=== PATIENT | female | born 1955 | race Caucasian/White ===

== ENCOUNTER 2016-12-17 09:00 | Observation (INO) | payer OTHER ==
--- NOTE | ~2016-12-17 | HP ---
History And Physical [place] [id number] [facility] [place]. [address] NAME: LORRAINE BLANCO : 51 STATUS : ADM Ramirez PAT#: [id number] AGE: 61 ADM/REG DATE : 12/17/16 MR#: [id number] REPORT SERV DATE: 12/17/16 DICTATED BY: IFEOMA STEPHENSON DATE: 12/17/16 REPORT STATUS : Draft TRANSCRIBED BY: MODL DATE: 12/17/16 DATE OF ADMISSION: 12/17/2016 PRIMARY CARE PROVIDER: Sabrina. GOLD FRAME ASSEMBLER: Dr. Esdras Florentino. CHIEF COMPLAINT: Palpitations, flutters since last evening. HISTORY OF PRESENT ILLNESS: A very pleasant 61-year-old white female with no known history of CAD or previous atrial fibrillation events, reports that last night while watching TV, she fell asleep. She awoke and in getting up to go to bed, she had a significant headache and felt palpitations and flutters in her chest. Her daughter checked her vital signs. Her blood pressure was 140/90. Her heart rate ranged from 120 to 140 beats per minute. She reports feeling breathless and anxious, somewhat nauseous, dizzy with episodes of belching. She denies any diaphoresis. She does describe some chest tightness rated at a 6/10 at its most intense, now at 3/10. The patient denies any personal history of myocardial infarction, stroke, DVT, or pulmonary embolus. The patient denies any recent fever or chills. Describes palpitations since last evening, worse with activity. No syncopal episodes. Denies PND or orthopnea. [id number] score of 3 to 4 for gender, age, hypertension, and borderline diabetic. PAST MEDICAL HISTORY: 1. Hypertension. 2. Cholesterol per PCP. 3. Arthritis. 4. History of breast cancer, status post left mastectomy. 5. Borderline diabetic. 6. Murmur. PAST SURGICAL HISTORY: 1. Tonsillectomy. 2. Left mastectomy. 3. Umbilical hernia repair. SOCIAL HISTORY: She is , with three children. She sews out of her home. She does not have an exercise routine. She denies tobacco, alcohol, or illicits. FAMILY HISTORY: Mother and father with hypertension. Brother with stroke and heart attack, remains alive at the age of 65. REVIEW OF SYSTEMS: A 14-point review of systems performed, significant for HPI including snores per report with no formal sleep study. Home blood pressures of 135/70. Consumes one cup of coffee per day. History And Physical [place] [address] [place]. [address] NAME: LORRAINE BLANCO : 51 STATUS : ADM Ramirez PAT#: [id number] AGE: 61 ADM/REG DATE : 12/17/16 MR#: [id number] REPORT SERV DATE: 12/17/16 DICTATED BY: IFEOMA STEPHENSON DATE: 12/17/16 REPORT STATUS : Draft TRANSCRIBED BY: MODL DATE: 12/17/16 Otherwise, complete review of systems obtained and negative. ALLERGIES: OXYCODONE, DIZZINESS, CRAZY. HOME MEDICINES: Refresh drops; aspirin p.r.n.; vitamin D3 a 2000 units daily; lisinopril 10 mg daily; Antivert p.r.n.; Mobic 15 mg daily; Aleve p.r.n.; IBgard p.r.n.; and Bioflex. PHYSICAL EXAMINATION: VITAL SIGNS: Blood pressure 144/77, pulse 98, irregularly irregular, respirations 22, temperature 97.8, and O2 saturation 95% on room air. GENERAL: Cooperative, in no apparent distress. HEENT: Pupils 2 mm, sclera nonicteric. Nares patent. Moist mucous membranes. No xanthelasma. NECK: Trachea midline, no thyromegaly. No JVD. No bruits. LYMPH: No cervical lymphadenopathy. No supraclavicular lymphadenopathy. RESPIRATORY: Unlabored respirations. Breath sounds clear bilaterally to posterior auscultation. No wheezes or rhonchi. CARDIOVASCULAR: Irregularly irregular rate with a variable S1, S2. A 1/6 murmur, best audible right sternal border. Extremities without edema. Pulses 2+ bilaterally. ABDOMEN: Obese, soft, nontender, nondistended, normal bowel sounds auscultated throughout. No organomegaly. SKIN: Warm, dry extremities. No pallor, or cyanosis. PSYCHIATRIC: Appropriate affect. Alert, oriented x3. LABORATORY DATA: Troponin 0.03, second pending. Potassium 4.1, BUN 14, creatinine 0.72, glucose 129, magnesium 2.1. TSH 2.55. WBC 9.8, hemoglobin 14.6, hematocrit 42.7, and platelet count 261,000. EKG atrial fibrillation, but (previously regular with questionable SVT and sinus rhythm). MPI 2009 Papo stage 2, 5:01 minutes, 7 METS, no ischemia. ASSESSMENT AND PLAN: 1. New-onset atrial fibrillation. I will check a second troponin. N.p.o. after midnight for JENNY cardioversion on 12/18/2016, at 13:00. Begin beta kranthi and Eliquis, has been seen by Dr. Barros on rounds. We will initiate flecainide. [id number] score of 3 to 4. The patient will follow up with PCP and Dr. Florentino as appropriate. 2. Chest tightness. Consider outpatient MPI and echocardiogram to evaluate aortic stenosis after conversion to sinus rhythm. 3. Hypertension. Monitor blood pressure and continue home medications. 4. Borderline diabetic. Level 1 sliding scale correction. 5. Snores per report. Recommend outpatient sleep study through PCP. 6. I am going to add Eliquis 5 mg b.i.d. at discharge. CYNDY/JAMEE History And Physical [address] [address] NAME: LORRAINE BLANCO : 51 STATUS : ADM Ramirez PAT#: [id number] AGE: 61 ADM/REG DATE : 12/17/16 MR#: [id number] REPORT SERV DATE: 12/17/16 DICTATED BY: IFEOMA [place] DATE: 12/17/16 REPORT STATUS : Draft TRANSCRIBED BY: MODL DATE: 12/17/16 Ifeoma Stephenson, MSN, DIRECTOR OF CLINICAL SERVICES-BC / [id number] CC: Ifeoma Stephenson, JOSE MANUEL, DIRECTOR OF CLINICAL SERVICES-BC Esdras Florentino M.D., Ph.D, F.A.C.C.
--- NOTE | ~2016-12-17 | OP ---
Record Of [facility] [address] [place]. [address] NAME: LORRAINE BLANCO : 51 STATUS : DIS Ramirez PAT#: [id number] AGE: 61 ADM/REG DATE : 12/17/16 MR#: [id number] REPORT SERV DATE: 12/19/16 DICTATED BY: ESDRAS DELONG DATE: 12/18/16 REPORT STATUS : Draft TRANSCRIBED BY: MODL DATE: 12/18/16 DATE OF PROCEDURE: 12/18/2016 This is a transesophageal echocardiogram and cardioversion report. REQUESTED BY: Riley Barros M.D. INDICATION: Atrial fibrillation. PROCEDURE DESCRIPTION: After informed consent, the patient was sedated with propofol by the Anesthesia Department. The transesophageal probe was placed on the first attempt. After removal of the transesophageal probe, a single defibrillation was delivered. There were no immediate complications. TRANSESOPHAGEAL ECHOCARDIOGRAM: 2-D INTERPRETATION: 1. The aortic valve is trileaflet and opens adequately. 2. The ascending aorta is normal in size. 3. There is no evidence of left atrial appendage thrombus. 4. The left ventricular size and systolic function appears normal. 5. There was no evidence of pericardial effusion. 6. The mitral valve is structurally normal. 7. The left atrial size is mildly enlarged. 8. Right-sided chambers are normal in size. 9. The tricuspid valve is structurally normal. DOPPLER: Pulse wave Doppler in the left atrial appendage is less than 40 cm/second. COLOR FLOW: 1. There was [id number] mitral regurgitation. 2. There is trace to mild aortic and tricuspid regurgitation. CARDIOVERSION: A single synchronized 200 joule biphasic defibrillation was delivered. Atrial fibrillation converted to normal sinus rhythm. IMPRESSION: 1. No evidence of left atrial appendage thrombus. 2. [id number] mitral regurgitation with mild left atrial enlargement. 3. Successful cardioversion from atrial fibrillation to normal sinus rhythm. MU/JAMEE Esdras Record Of [place] [address] [place]. [address] NAME: LORRAINE BLANCO : 51 STATUS : DIS Ramirez PAT#: [id number] AGE: 61 ADM/REG DATE : 12/17/16 MR#: [id number] REPORT SERV DATE: 12/19/16 DICTATED BY: ESDRAS DELONG DATE: 12/18/16 REPORT STATUS : Draft TRANSCRIBED BY: MODL DATE: 12/18/16 Shivani Delong / [id number] CC: Ifeoma Lilly MSN, FOOD AND NUTRITION SERVICES SUPERVISOR-BC
[~2016-12-17 09:00] MED LIST: MOBIC15 MG PO; TYLENOL ARTH650 MG PO
[2016-12-17 10:06] LABS: BASOPHILS 0.2 %; BASOPHILS ABSOLUTE 0.02 10/3/uL (0.0-0.16); EOSINOPHILS 0.7 %; EOSINOPHILS ABSOLUTE 0.07 10/3/uL (0.0-0.53); ER CBC TAT 0 Hrs 05 Mins; HEMATOCRIT 42.7 % (36.0-48.0); HEMOGLOBIN 14.6 g/dL (12.0-16.0); IMMATURE GRANULOCYTES 0.3 %; IMMATURE GRANULOCYTES ABSOLUTE 0.03 10/3/uL (0.0-0.11); LYMPHOCYTES 32.4 %; LYMPHOCYTES ABSOLUTE 3.18 10/3/uL (0.67-4.30); MANUAL DIFF NO %; MEAN CORPUS HGB CONC 34.2 g/dL (32.0-36.0); MEAN CORPUSCULAR HEMOGLOB 30.6 pg (26.0-34.0); MEAN CORPUSCULAR VOLUME 89.5 fL (80-100); MEAN PLATELET VOLUME 10.7 fL (9.2-13.0); MONOCYTES 4.3 %; MONOCYTES ABSOLUTE 0.42 10/3/uL (0.21-1.20); NEUTROPHILS 62.1 %; NEUTROPHILS ABSOLUTE 6.09 10/3/uL (2.02-8.40); PLATELET COUNT 261 10/3/uL (150-400); RED CELL COUNT 4.77 10/6/uL (4.0-5.6); WHITE BLOOD CELLS 9.8 10/3/uL (4.5-10.5)
[2016-12-17 10:13] LABS: INTERNATIONAL NORMAL RATI 1.1 UNITS (-); PARTIAL THROMBO TIME 27.9 SEC (22.5-37.2); PROTIME (NOT ORD) 13.6 SEC (12.0-14.5)
[2016-12-17 10:28] LABS: BUN (BLOOD UREA NITROGEN) 14 MG/DL (6-23); CALCIUM, SERUM 9.4 MG/DL (8.5-10.4); CHEST PAIN PROFILE TAT 0 Hrs 27 Mins; CHLORIDE, SERUM 108 MMOL/L (96-112); CO2 (CARBON DIOXIDE) 26 MMOL/L (24-34); CREATININE 0.72 MG/DL (0.55-1.02); GFR AFRICAN AMERICAN 103 ML/MIN (>=60); GFR NON AFRICAN AMERICAN 89 ML/MIN (>=60); GLUCOSE, SERUM 129 MG/DL (60-99); POTASSIUM, SERUM 4.1 MMOL/L (3.5-5.3); SODIUM, SERUM 143 MMOL/L (135-148); TROPONIN I 0.03 NG/ML (<0.05)
[2016-12-17] MEDS ORDERED: PRIN10 PO (10:56)
[2016-12-17] MEDS ORDERED: MOBIC15 MG PO (10:56)
[2016-12-17] MEDS ORDERED: IBGARD PO ×2 (10:57)
[2016-12-17] MEDS ORDERED: MCZ25 PO (10:57)
[2016-12-17] MEDS ORDERED: VITAMIN D31000 UNIT PO (10:58)
[2016-12-17] MEDS ORDERED: ALEVE220 MG PO (10:59)
[2016-12-17] MEDS ORDERED: REFRESH OPH (10:59)
[2016-12-17] MEDS ORDERED: BIO FLEX TOP (11:00)
[2016-12-17] MEDS ORDERED: ASAB PO (11:01)
[2016-12-17 13:37] LABS: INTERNATIONAL NORMAL RATI 1.2 UNITS (-); PROTIME (NOT ORD) 14.6 SEC (12.0-14.5)
[2016-12-17 13:38] LABS: PARTIAL THROMBO TIME 28.1 SEC (22.5-37.2)
[2016-12-17 13:54] LABS: ALBUMIN 3.5 G/DL (3.5-5.0); ALKALINE PHOSPHATASE 87 U/L (45-117); DIRECT BILIRUBIN < 0.1 MG/DL (0.0-0.4); FREE T4 1.17 NG/DL (0.76-1.46); INDIRECT BILIRUBIN(NOT ORDER) 0.4 MG/DL (0.1-0.9); SGOT(AST) 14 U/L (5-40); SGPT(ALT) 24 U/L (5-65); TOTAL BILIRUBIN 0.5 MG/DL (0-1.2); TOTAL PROTEIN 7.4 G/DL (6.0-8.5)
[2016-12-18 09:35] LABS: BASOPHILS 0.3 %; BASOPHILS ABSOLUTE 0.03 10/3/uL (0.0-0.16); EOSINOPHILS 0.6 %; EOSINOPHILS ABSOLUTE 0.07 10/3/uL (0.0-0.53); HEMATOCRIT 41.9 % (36.0-48.0); HEMOGLOBIN 14.4 g/dL (12.0-16.0); IMMATURE GRANULOCYTES 0.4 %; IMMATURE GRANULOCYTES ABSOLUTE 0.04 10/3/uL (0.0-0.11); LYMPHOCYTES 33.8 %; LYMPHOCYTES ABSOLUTE 3.83 10/3/uL (0.67-4.30); MANUAL DIFF NO %; MEAN CORPUS HGB CONC 34.4 g/dL (32.0-36.0); MEAN CORPUSCULAR HEMOGLOB 30.7 pg (26.0-34.0); MEAN CORPUSCULAR VOLUME 89.3 fL (80-100); MEAN PLATELET VOLUME 10.7 fL (9.2-13.0); MONOCYTES 4.3 %; MONOCYTES ABSOLUTE 0.49 10/3/uL (0.21-1.20); NEUTROPHILS 60.6 %; NEUTROPHILS ABSOLUTE 6.88 10/3/uL (2.02-8.40); PLATELET COUNT 304 10/3/uL (150-400); RBC DISTRIBUTION WIDTH 12.4 % (12.0-16.0); RED CELL COUNT 4.69 10/6/uL (4.0-5.6); WHITE BLOOD CELLS 11.3 10/3/uL (4.5-10.5)
[2016-12-18 09:41] LABS: TROPONIN I <0.02 NG/ML (<0.05)
[2016-12-18 09:49] LABS: BUN (BLOOD UREA NITROGEN) 13 MG/DL (6-23); CALCIUM, SERUM 8.8 MG/DL (8.5-10.4); CHLORIDE, SERUM 108 MMOL/L (96-112); CO2 (CARBON DIOXIDE) 24 MMOL/L (24-34); GFR AFRICAN AMERICAN 91 ML/MIN (>=60); GFR NON AFRICAN AMERICAN 78 ML/MIN (>=60); GLUCOSE, SERUM 147 MG/DL (60-99); SODIUM, SERUM 139 MMOL/L (135-148)
[2016-12-18 09:51] LABS: POTASSIUM, SERUM 5.8 MMOL/L (3.5-5.3)
[2016-12-18] MEDS ORDERED: ELIQUIS 5 MG TAB5 MG PO (15:35)
[2016-12-18] MEDS ORDERED: LOP25 PO (15:36)
== END 2016-12-18 16:37 | disposition home or self-care (01) ==
LOC: ER 09:00 → CDU1 11:29
PROVIDERS: Clinical Nurse Specialist; Emergency Medicine
DX: I48.91 Unspecified atrial fibrillation (principal); I10 Essential (primary) hypertension; G43.909 Migraine, unspecified, not intractable, without status migrainosus; M19.90 Unspecified osteoarthritis, unspecified site; Z85.3 Personal history of malignant neoplasm of breast; Z98.890 Other specified postprocedural states; Z88.5 Allergy status to narcotic agent; Z79.82 Long term (current) use of aspirin; Z79.899 Other long term (current) drug therapy
CPT/HCPCS: 71010; 80048; 80076; 83735; 83880; 84132; 84439; 84443; 84484; 85025; 85610; 85730; 92960; 93005; 93312; 93320; 93325; 93970; 96365; 96376; 99285; A9270-GY; G0378